=== PATIENT | female | born 1955 | race Caucasian/White ===

== ENCOUNTER → 2023-10-11 | Emergency (ER) | payer OTHER ==
[~2023-10-11] MED LIST: HYDROCODONE/APAP 5/325 MG TAB ONE
--- NOTE | 2023-10-11 17:55 | RAD REPORT ---
EXAM DESCRIPTION: RAD - Femur Right - 10/11/2023 5:36 pm CLINICAL HISTORY: PAIN COMPARISON: <Comparisons> FINDINGS: Hardware is present in the proximal right femur. No unexpected hardware finding. Prominent diffuse osteopenia. Heavy vascular atherosclerosis.
--- NOTE | 2023-10-11 17:56 | RAD REPORT ---
EXAM DESCRIPTION: RAD - Hip Right 2 View - 10/11/2023 5:36 pm CLINICAL HISTORY: PAIN COMPARISON: <Comparisons> FINDINGS: Hardware is present in the proximal right femur. No evidence of hardware complication. No dislocation.
--- NOTE | 2023-10-11 17:56 | RAD REPORT ---
EXAM DESCRIPTION: US - Extremity Venous Uni Ltd - 10/11/2023 5:44 pm CLINICAL HISTORY: PAIN Leg swelling and edema. COMPARISON: <Comparisons> FINDINGS: Right lower extremity venous system was interrogated with Doppler technique. Normal flow, compressibility and augmentation was noted. There is no DVT present. IMPRESSION: No evidence of right lower extremity deep venous thrombosis.
--- NOTE | 2023-10-11 18:59 | EDPHYS ---
Physician Documentation [facility] Name: Larisa Cárdenas Age: 68 yrs Sex: Female : 1955 Arrival Date: 10/11/2023 Time: 16:11 Bed 17 Private MD: ED Physician Ovi Benjamin HPI: 10/11 23:28 This 68 yrs old Female presents to ER via Wheelchair with complaints of Hip Pain - kb right, Leg Pain - right, Leg Swelling - right. 23:28 Patient is a 68-year-old female who had a hip replacement in August 2023. States she kb was in rehab for 1 month and discharged when she was able to transfer. Daughter states patient has been nonambulatory since she was discharged and has been having a lot of hip pain that radiates to the knee. Patient had surgery and rehab in [facility], upon discharge drove down to [place] to relocate.. 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 Flu vaccine is up to date. - Social history:: Smoking status: Reported history of juuling and/or vaping. ROS: 18:33 Constitutional: Negative for fever, chills, and weight loss, kb 18:33 MS/extremity: Positive for pain, of the right leg, 18:33 All other systems are negative, Exam: 23:28 Constitutional: This is a well developed, well nourished patient who is awake, alert, kb and in no acute distress. Head/Face: Normocephalic, atraumatic. ENT: Moist Mucous membranes Cardiovascular: Regular rate Respiratory: Respirations even and unlabored. No increased work of breathing. Talking in full sentences Abdomen/GI: Soft, non-tender. No distention Skin: Warm, dry with normal turgor. Normal color. Neuro: Awake and alert, GCS 15, oriented to person, place, time, and situation. Moves all extremities. 23:28 Musculoskeletal/extremity: Extremities: grossly normal except: noted in the right hip: pain, ROM: limited active range of motion due to pain, Circulation is intact in all extremities. Sensation intact. Weight bearing: is unable to bear weight, Vital Signs: 16:22 BP 167 / 93; Pulse 82; Resp 17; Temp 99.3; Pulse Ox 93% on R/A; Weight 68.04 kg; Height ap3 4 ft. 9 in. ; Pain 10/10; 19:47 BP 158 / 89; Pulse 79; Resp 18; Pulse Ox 94% on R/A; me1 16:22 Body Mass Index 32.46 (68.04 kg, 144.78 cm) ap3 16:22 Pain Scale: Adult ap3 MDM: 16:23 Patient medically screened. kb 23:30 Differential diagnosis: hip fracture, Postop pain, dislocation. Data reviewed: vital kb signs, nurses notes. Historians other than the Patient: Daughter/Son: Daughter. Counseling: I had a detailed discussion with the patient and/or guardian regarding the historical points, exam findings, and any diagnostic results supporting the discharge/admit diagnosis, radiology results, the need for outpatient follow up, a family practitioner, a orthopedic surgeon, to return to the emergency department if symptoms worsen or persist or if there are any questions or concerns that arise at home. ED course: X-rays without acute findings, ultrasound negative for DVT. Discussed findings with patient and daughter. Educated on possible need for further PT. patient able to stand so that I could evaluate incision site. Healed incision site with no redness, swelling or warmth. Patient does have ecchymosis just above knee that she reports has been there since she was in PT. Daughter states patient was only able to transfer prior to her surgery and has been unable to walk for a long time. States patient did transfer prior to discharge from rehab but states it was only so that she could be discharged. Since then patient has refused to transfer herself, do PT.. 10/11 16:30 Order name: Femur Right XRAY; Complete Time: 17:57 kb 10/11 16:30 Order name: Hip Right 2 View XRAY; Complete Time: 17:57 kb 10/11 16:43 Order name: US Extremity Venous Unilateral Ltd; Complete Time: 17:57 kb Administered Medications: 19:33 Drug: HYDROcodone-acetaminophen PO 5 mg-325 mg 1 tabs PO once Route: PO; me1 19:39 Follow up: Response: No adverse reaction me1 Disposition: 20:50 Co-signature as Attending Physician, Ovi Benjamin MD I agree with the assessment and kdr plan of care. Disposition Summary: 10/11/23 18:59 Discharge Ordered Notes: Location: Home kb Condition: Stable kb Diagnosis - Pain in right hip kb Followup: kb - With: Emergency Department - When: As needed - Reason: Worsening of condition Followup: kb - With: Private Physician - When: 2 - 3 days - Reason: Recheck today's complaints, Continuance of care, Re-evaluation by your physician Discharge Instructions: - Discharge Summary Sheet kb - Musculoskeletal Pain kb Forms: - Medication Reconciliation Form kb - Thank You Letter kb - Antibiotic Education kb - Prescription Opioid Use kb - Patient Portal Instructions kb - Leadership Thank You Letter kb Signatures: Dispatcher [employer] EDElvia Rivas, CUSTOMER ENGINEER-C CUSTOMER ENGINEER-Ovi Valles MD MD [facility] Rosa M Kim RN RN ap3 Chula Miles, RN RN me1
--- NOTE | 2023-10-11 18:59 | ER ---
Nurse's Notes [facility] Name: Larisa Cárdenas Age: 68 yrs Sex: Female : 1955 Arrival Date: 10/11/2023 Time: 16:11 Bed 17 Private MD: Diagnosis: Pain in right hip Presentation: 10/11 16:22 Chief complaint:. Coronavirus screen: At this time, the client does not indicate any ap3 symptoms associated with coronavirus-19. Ebola Screen: No symptoms or risks identified at this time. Initial Sepsis Screen: Does the patient meet any 2 criteria? No. Patient's initial sepsis screen is negative. Does the patient have a suspected source of infection? No. Patient's initial sepsis screen is negative. Risk Assessment: Do you want to hurt yourself or someone else? Patient reports no desire to harm self or others. Onset of symptoms is unknown. 16:22 Method Of Arrival: Wheelchair ap3 16:22 Acuity: LOREN 3 ap3 Triage Assessment: 16:26 General: Appears in no apparent distress. Behavior is calm, cooperative, appropriate ap3 for age. Pain: Complains of pain in right hip Pain currently is 10 out of 10 on a pain scale. Pain began gradually. Neuro: Level of Consciousness is awake, alert, obeys commands, Oriented to person, place, time, situation, Appropriate for age. Cardiovascular: Patient's skin is warm and dry. Respiratory: Airway is patent Respiratory effort is even, unlabored, Respiratory pattern is regular, symmetrical. 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 Flu vaccine is up to date. - Social history:: Smoking status: Reported history of juuling and/or vaping. Screenin:27 Abuse screen: Denies threats or abuse. Nutritional screening: No deficits noted. ap3 Tuberculosis screening: No symptoms or risk factors identified. 16:45 [facility] ED Fall Risk Assessment (Adult) History of falling in the last 3 months, me1 including since admission Yes- single mechanical fall (1 pt). Assessment: 16:45 General: Appears uncomfortable, well groomed, well developed, well nourished, Behavior me1 is calm, cooperative, appropriate for age, Reports. 16:45 General: Reports she had right femoral surgery on 09/01/23 in [facility]. patient me1 reports she then went to rehab until 09/28/23, and her post op imaging showed that her "hip is now off". patient reports pain in the right hip to be a 10/10 at this time. Pain: Complains of pain in right leg and pelvis and right hip Pain does not radiate. Pain currently is 10 out of 10 on a pain scale. Quality of pain is described as sharp, Pain began gradually, Is continuous. Neuro: Level of Consciousness is awake, alert, obeys commands, Oriented to person, place, time, situation, Appropriate for age. Cardiovascular: Capillary refill < 3 seconds Patient's skin is warm and dry. Respiratory: Airway is patent Trachea midline Respiratory effort is even, unlabored, Respiratory pattern is regular, symmetrical. Musculoskeletal: Swelling present in right leg and pelvis and right hip. Vital Signs: 16:22 BP 167 / 93; Pulse 82; Resp 17; Temp 99.3; Pulse Ox 93% on R/A; Weight 68.04 kg; Height ap3 4 ft. 9 in. ; Pain 10/10; 19:47 BP 158 / 89; Pulse 79; Resp 18; Pulse Ox 94% on R/A; me1 16:22 Body Mass Index 32.46 (68.04 kg, 144.78 cm) ap3 16:22 Pain Scale: Adult ap3 ED Course: 16:14 Patient arrived in ED. im 16:23 Elvia Valencia FNP-C is PHCP. kb 16:23 Ovi Benjamin MD is Attending Physician. kb 16:24 Triage completed. ap3 16:27 Arm band placed on right wrist. ap3 17:38 Femur Right XRAY In Process Unspecified. EDMS 17:38 Hip Right 2 View XRAY In Process Unspecified. EDMS 17:46 US Extremity Venous Unilateral Ltd In Process Unspecified. EDMS 19:30 Chula Miles, RN is Primary Nurse. me1 19:46 No provider procedures requiring assistance completed. Patient did not have IV access me1 during this emergency room visit. 19:47 Patient has correct armband on for positive identification. Bed in low position. Call me1 light in reach. Side rails up X2. Provided Education on: POC. Verbalized understanding. . Administered Medications: 19:33 Drug: HYDROcodone-acetaminophen PO 5 mg-325 mg 1 tabs PO once Route: PO; me1 19:39 Follow up: Response: No adverse reaction me1 Medication: 16:45 VIS not applicable for this client. me1 Outcome: 18:59 Discharge ordered by . lora 19:47 Discharged to home via wheelchair, with family, me1 19:47 Condition: stable 19:47 Discharge instructions given to patient, Instructed on discharge instructions, follow up and referral plans. Demonstrated understanding of instructions, follow-up care, 19:48 Patient left the ED. me1 Signatures: Dispatcher [employer] EDCA Elvia Valencia FNP-Gaudencio SHOOK-Rosa M Hassan RN RN ap3 Holly Rojas Michelle, RN RN me1 Corrections: (The following items were deleted from the chart) 19:41 16:22 Chief complaint: Patient states: she had right femoral surgery on 09/01/[address] patient reports she then went to rehab until 09/28/23, and her post op imaging showed that her "hip is now off". patient reports pain in the right hip to be a 10/10 at this time. ap3 19:44 16:22 Chief complaint: Patient states: she had right femoral surgery on 09/01/[address] patient reports she then went to rehab until 09/28/23, and her post op imaging showed that her "hip is now off". patient reports pain in the right hip to be a 10/10 at this time. va1 19:46 19:42 General: Appears uncomfortable, well groomed, well developed, well nourished, me1 Behavior is calm, cooperative, appropriate for age, Reports me1
== END ==
LOC: ER 16:11
DX: M25.551 Pain in right hip (principal); M79.604 Pain in right leg; Z88.1 Allergy status to other antibiotic agents; Z88.6 Allergy status to analgesic agent; Z88.8 Allergy status to other drugs, medicaments and biological substances; Z91.040 Latex allergy status; Z91.048 Other nonmedicinal substance allergy status
CPT/HCPCS: 93971